=== PATIENT | male | born 1985 | race Caucasian/White ===

== ENCOUNTER 2016-09-14 17:27 | Emergency (ER) | payer OTHER ==
[2016-09-14 17:53] VITALS: RESP 18
[2016-09-14] MEDS ORDERED: ACETAMINOPHEN IV (For NPO) 1,000 MG in EMPTY BAG 1 BAG IVPB STA (18:13)
[2016-09-14] MEDS ORDERED: ONDANSETRON 4 MG/2 ML VIAL IVP STA (18:13)
[2016-09-14] MEDS ORDERED: SODIUM CHLORIDE 0.9% 1,000 ML IV ONE (18:13)
--- NOTE | 2016-09-14 18:17 | ED ---
Nausea/Vomiting/Diarrhea HPI - General Chief complaint: Nausea/Vomiting/Diarrhea Stated complaint: vomiting,diarreha Time Seen by Provider: 09/14/16 18:05 Source: patient, RN notes reviewed Mode of arrival: ambulatory Limitations: no limitations - History of Present Illness Initial comments: Patient is a 31-year-old male presents to the emergency room for evaluation nausea, vomiting and diarrhea. Patient's is with the patient. Patient's states that patient began feeling very nauseous from 1 PM. Patient's states that around 2:30 PM patient began with vomiting and diarrhea. Patient's states that patient has had these symptoms for the past 4 hours nonstop. Patient states that she thinks patient is dehydrated. Patient's states that their children had similar symptoms this past weekend but it did not last as long. Patient states he's having all over body pain and cramping. Patient states he having pain in the stomach from vomiting. Patient states he is currently feeling very nauseous. Patient denies back pain. Patient denies any trouble urinating. Patient denies being on any medications. Patient states he took Pepto-Bismol shortly before arrival. Patient states he feels lightheaded. Patient denies chest pain or shortness of breath. Patient denies ear pain and throat pain. Patient denies chest pain. Patient denies recent travel outside the country. Patient denies new foods. - Related Data Previous Rx's Medication Instructions Recorded Ondansetron Odt [Zofran Odt] 4 mg PO Q8HR PRN #12 tab 09/14/16 Allergies Allergy/AdvReac Type Severity Reaction Status Date / Time amoxicillin Allergy Unknown Verified 09/14/16 18:20 Childhood azithromycin [From Zithromax] Allergy Unknown Verified 09/14/16 18:20 Childhood gluten Allergy Unknown Verified 09/14/16 18:20 Milk Containing Products Allergy Unknown Verified 09/14/16 18:20 [Dairy] Review of Systems ROS Statement: Those systems with pertinent positive or pertinent negative responses have been documented in the HPI. ROS Other: All systems not noted in ROS Statement are negative. Past Medical History Past Medical History: No Reported History History of Any Multi-Drug Resistant Organisms: None Reported Additional Past Surgical History / Comment(s): vasectomy Past Psychological History: No Psychological Hx Reported Smoking Status: Never smoker Past Alcohol Use History: None Reported Past Drug Use History: Unable to Obtain General Exam - General Exam Comments Initial Comments: Laying in exam room, no acute distress. Limitations: no limitations General appearance: alert, in no apparent distress Head exam: Present: atraumatic, normocephalic, normal inspection Eye exam: Present: normal appearance ENT exam: Present: normal exam Neck exam: Present: normal inspection Respiratory exam: Present: normal lung sounds bilaterally. Absent: respiratory distress Cardiovascular Exam: Present: regular rate, normal rhythm, normal heart sounds GI/Abdominal exam: Present: soft, normal bowel sounds. Absent: distended, tenderness, guarding, rebound, rigid Extremities exam: Present: normal inspection Back exam: Present: normal inspection Neurological exam: Present: alert, oriented X3, CN II-XII intact, normal gait Psychiatric exam: Present: normal affect, normal mood Skin exam: Present: warm, dry, intact, normal color. Absent: rash Course Vital Signs 09/14/16 09/14/16 17:50 20:07 Temperature 96.1 F L 99.3 F Pulse Rate 94 84 Respiratory 18 18 Rate Blood Pressure 108/73 112/59 O2 Sat by Pulse 100 100 Oximetry Medical Decision Making - Medical Decision Making Patient is a 31-year-old male presents to the emergency room for evaluation nausea, vomiting and diarrhea. Patient states he feels much better after fluids and Zofran given. Patient states he would like to go home. Will send patient home with Zofran and advised to return for worsening symptoms. Patient states he understands and was discussed with him. Discussed with Dr. Vásquez. - Lab Data Result diagrams: 09/14/16 18:42 09/14/16 18:42 Lab Results 09/14/16 09/14/16 Range/Units 18:42 18:42 WBC 13.4 H (3.8-10.6) k/uL RBC 5.41 (4.30-5.90) m/uL Hgb 16.8 (13.0-17.5) gm/dL Hct 49.1 (39.0-53.0) % MCV 90.8 (80.0-100.0) fL MCH 31.1 (25.0-35.0) pg MCHC 34.3 (31.0-37.0) g/dL RDW 12.9 (11.5-15.5) % Plt Count 226 (150-450) k/uL Sodium 141 (137-145) mmol/L Potassium 3.9 (3.5-5.1) mmol/L Chloride 102 (98-107) mmol/L Carbon Dioxide 20 L (22-30) mmol/L Anion Gap 19 mmol/L BUN 19 (9-20) mg/dL Creatinine 1.11 (0.66-1.25) mg/dL Est GFR (MDRD) Af Amer >60 (>60 ml/min/1.73 sqM) Est GFR (MDRD) Non-Af >60 (>60 ml/min/1.73 sqM) Glucose 137 H (74-99) mg/dL Calcium 10.3 H (8.4-10.2) mg/dL Total Bilirubin 1.6 H (0.2-1.3) mg/dL AST 27 (17-59) U/L ALT 28 (21-72) U/L Alkaline Phosphatase 57 (38-126) U/L Total Protein 8.9 H (6.3-8.2) g/dL Albumin 5.2 H (3.5-5.0) g/dL Amylase 49 (30-110) U/L Lipase 87 (23-300) U/L - Radiology Data Radiology results: report reviewed, image reviewed Disposition Clinical Impression: Nausea vomiting and diarrhea Disposition: HOME SELF-CARE Condition: Good Instructions: Gastroenteritis (ED) Additional Instructions: Drink plenty of fluids. Take Zofran as needed for nausea. Please follow up with primary care provider in 1-2 days. If any new symptom arises or symptoms worsen, return to ER as soon as possible. Prescriptions: Ondansetron Odt [Zofran Odt] 4 mg PO Q8HR PRN #12 tab PRN Reason: Nausea Referrals: Lyric Ring MD [Primary Care Provider] - 1-2 days Time of Disposition: 19:52
[2016-09-14 19:07] LABS: CH 32.5; CHCM 35.9; HCT 49.1 % (39.0-53.0); HDW 2.58; HGB 16.8 gm/dL (13.0-17.5); Immature Gran Flag Slight; MCH 31.1 pg (25.0-35.0); MCHC 34.3 g/dL (31.0-37.0); MCV 90.8 fL (80.0-100.0); RBC 5.41 m/uL (4.30-5.90); RDW 12.9 % (11.5-15.5); WBC 13.4 k/uL (3.8-10.6); WBC (Perox) 14.41
[2016-09-14 19:08] LABS: ALT 28 U/L (21-72); AST 27 U/L (17-59); Alkaline Phosphatase 57 U/L (38-126); Amylase 49 U/L (30-110); Anion Gap 19 mmol/L; Blood Urea Nitrogen 19 mg/dL (9-20); Calcium 10.3 mg/dL (8.4-10.2); Carbon Dioxide 20 mmol/L (22-30); Chloride 102 mmol/L (98-107); Glucose 137 mg/dL (74-99); Non-African American GFR(MDRD) >60 (>60 ml/min/1.73 sqM); Potassium 3.9 mmol/L (3.5-5.1); Sodium 141 mmol/L (137-145); Total Bilirubin 1.6 mg/dL (0.2-1.3); Total Protein 8.9 g/dL (6.3-8.2)
--- NOTE | 2016-09-14 19:09 | XR ---
EXAMINATION TYPE: XR KUB DATE OF EXAM: 09/14/2016 6:53 PM COMPARISON: No prior HISTORY: Nausea, vomiting, and diarrhea today. TECHNIQUE: Upright abdominal radiograph was obtained in the KUB projection. FINDINGS: Scattered air-fluid levels are seen in nondilated bowel. Overall there is a nonobstructive bowel gas pattern. No abnormal calcifications are seen within the abdomen or pelvis. Osseous structur es appear intact. No evidence of organomegaly. IMPRESSION: Scattered air-fluid levels within nondilated bowel. Mild adynamic ileus.
[2016-09-14 20:10] VITALS: BP 112/59; PULSE 84; TEMP 99.3
[2016-09-14 20:18] LABS: Add Differential Manual Differential
[2016-09-14 20:23] LABS: Metamyelocytes % 0.5 %; Myelocytes % 0.5 %; Nucleated Red Blood Cells 0 /100 WBC (0-0); Total Cells Counted 200
[2016-09-14 20:24] LABS: Large Platelets Present; Manual Review Performed; Toxic Granulation Present; Toxic Vacuolation Present
== END 2016-09-14 20:11 | disposition home or self-care (01) ==
LOC: EC 17:27
DX: K52.9 Noninfective gastroenteritis and colitis, unspecified (principal); M79.1 Myalgia; Z88.0 Allergy status to penicillin; Z88.1 Allergy status to other antibiotic agents; Z91.011 Allergy to milk products; Z91.018 Allergy to other foods
CPT/HCPCS: 36415; 80053; 82150; 83690; 85025; 74000; 99284; 96374; 96375; 96361 ×2; J2405; J0131

== ENCOUNTER 2021-03-26 23:42 | Emergency (ER) | payer BC, OTHER ==
[2021-03-27] MEDS ORDERED: IBUPROFEN 600 MG TAB PO STA (00:43)
[2021-03-27] MEDS ORDERED: SODIUM CHLORIDE 0.9% 1,000 ML IV ONE (00:43)
[2021-03-27] MEDS ORDERED: ACETAMINOPHEN TAB 325 MG TAB PO STA (00:43)
--- NOTE | 2021-03-27 00:53 | ED ---
Abdominal Pain HPI - General Chief Complaint: Abdominal Pain Stated Complaint: nausea, numbness all over Time Seen by Provider: 03/27/21 00:10 Source: patient Mode of arrival: ambulatory Limitations: no limitations - History of Present Illness MD Complaint: abdominal pain, other -: hour(s) Location: diffuse Severity: mild Quality: cramping Improves With: nothing Worsens With: nothing Associated Symptoms: nausea, fever - Related Data Previous Rx's Medication Instructions Recorded Ondansetron Odt [Zofran Odt] 4 mg PO Q8HR PRN #12 tab 09/14/16 Allergies Allergy/AdvReac Type Severity Reaction Status Date / Time amoxicillin Allergy Unknown Verified 03/26/21 23:52 Childhood azithromycin [From Zithromax] Allergy Unknown Verified 03/26/21 23:52 Childhood gluten Allergy Unknown Verified 03/26/21 23:52 Milk Containing Products Allergy Unknown Verified 03/26/21 23:52 [Dairy] Review of Systems ROS Statement: Those systems with pertinent positive or pertinent negative responses have been documented in the HPI. ROS Other: All systems not noted in ROS Statement are negative. Constitutional: Reports: fever, chills. Denies: weakness Respiratory: Denies: cough, dyspnea Cardiovascular: Denies: chest pain, palpitations, edema Gastrointestinal: Reports: abdominal pain, nausea, diarrhea. Denies: vomiting Genitourinary: Denies: dysuria, hematuria Musculoskeletal: Denies: back pain Skin: Denies: rash Neurological: Denies: headache, weakness, numbness Past Medical History Past Medical History: No Reported History History of Any Multi-Drug Resistant Organisms: None Reported Additional Past Surgical History / Comment(s): vasectomy Past Psychological History: No Psychological Hx Reported Smoking Status: Never smoker Past Alcohol Use History: None Reported Past Drug Use History: Unable to Obtain General Exam Limitations: no limitations General appearance: alert, in no apparent distress Head exam: Present: atraumatic, normocephalic Eye exam: Present: normal appearance. Absent: scleral icterus, conjunctival injection ENT exam: Present: mucous membranes dry Neck exam: Present: normal inspection, full ROM Respiratory exam: Present: normal lung sounds bilaterally. Absent: respiratory distress, wheezes, rales, rhonchi, stridor Cardiovascular Exam: Present: normal rhythm, tachycardia. Absent: systolic murmur, diastolic murmur, rubs, gallop GI/Abdominal exam: Present: soft. Absent: distended, tenderness, guarding, rebound, rigid, mass, pulsatile mass Extremities exam: Present: normal inspection, normal capillary refill. Absent: pedal edema, calf tenderness Back exam: Present: normal inspection. Absent: CVA tenderness (R), CVA tenderness (L) Neurological exam: Present: alert Skin exam: Present: warm, intact, normal color, diaphoretic. Absent: rash Course Vital Signs 03/26/21 03/27/21 03/27/21 23:47 00:20 00:34 Temperature 102.5 F H Pulse Rate 114 H 97 99 Respiratory 26 H 32 H 20 Rate Blood Pressure 98/57 94/61 O2 Sat by Pulse 100 99 99 Oximetry 03/27/21 03/27/21 01:00 02:05 Temperature 100.9 F H Pulse Rate 104 H 81 Respiratory 24 18 Rate Blood Pressure 108/65 106/58 O2 Sat by Pulse 100 97 Oximetry Medical Decision Making - Lab Data Lab Results 03/27/21 Range/Units 00:02 Coronavirus (PCR) Detected A (Not Detectd) - EKG Data -: EKG Interpreted by Nd EKG shows normal: sinus rhythm, axis (Normal), intervals (Prolonged QT), QRS complexes (Normal), ST-T waves (Normal) Rate: normal (Rate 97 bpm) Disposition Clinical Impression: COVID-19 Disposition: HOME SELF-CARE Condition: Good Instructions (If sedation given, give patient instructions): Coronavirus Disease 2019 (COVID-19) Is patient prescribed a controlled substance at d/c from ED?: No Referrals: Elliot Newell MD [Primary Care Provider] - 1-2 days
[2021-03-27 02:07] VITALS: PULSE 81; RESP 18; TEMP 100.9
[2021-03-27 02:42] VITALS: BP 108/50
== END 2021-03-27 02:38 | disposition home or self-care (01) ==
LOC: EC 23:42
DX: U07.1 COVID-19 (principal)
CPT/HCPCS: 87635; 93005; 96360; 99284

== ENCOUNTER 2021-04-02 14:55 | Emergency (ER) | payer BC ==
[2021-04-02 15:11] VITALS: TEMP 99.3
[2021-04-02] MEDS ORDERED: SODIUM CHLORIDE 0.9% 1,000 ML IV STA (16:06)
--- NOTE | 2021-04-02 16:40 | XR ---
EXAMINATION TYPE: XR chest 2V DATE OF EXAM: 04/02/2021 COMPARISON: NONE HISTORY: Chest pain TECHNIQUE: 2 views FINDINGS: There is no heart failure. There is increased density over the left lower lung field consis tent with a small posterior infiltrate. Costophrenic angles are clear. There are no hilar masses. The re is small linear density at the lung bases. IMPRESSION: Minimal subsegmental atelectasis. There is probably a small infiltrate in the superior se gment left lower lobe measuring 1.5 cm. Normal heart.
[2021-04-02 16:47] LABS: ALT 22 U/L (4-49); AST 40 U/L (17-59); African American GFR (CKD) >90 (>60 ml/min/1.73 sqM); Albumin 4.3 g/dL (3.5-5.0); Alkaline Phosphatase 47 U/L (38-126); Anion Gap 10 mmol/L; Blood Urea Nitrogen 14 mg/dL (9-20); Calcium 8.9 mg/dL (8.4-10.2); Carbon Dioxide 26 mmol/L (22-30); Chloride 99 mmol/L (98-107); Creatine Kinase 176 U/L (55-170); Glucose 96 mg/dL (74-99); Lipase 151 U/L (23-300); Magnesium 2.1 mg/dL (1.6-2.3); Non-African American GFR(CKD) >90 (>60 ml/min/1.73 sqM); Potassium 4.3 mmol/L (3.5-5.1); Sodium 135 mmol/L (137-145); Total Bilirubin 0.6 mg/dL (0.2-1.3); Total Protein 7.3 g/dL (6.3-8.2)
--- NOTE | 2021-04-02 16:51 | ED ---
Chest Pain HPI - General Chief Complaint: Chest Pain Stated Complaint: chest pain Time Seen by Provider: 04/02/21 15:57 Source: patient, RN notes reviewed Mode of arrival: wheelchair Limitations: no limitations - History of Present Illness Initial Comments: 35-year-old male who presents with complaints of chest pain proximal of breath he states it started yesterday. It is somewhat exertional. 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 Symptoms started shortly before that time. No prior history of heart or lung disease. No other complaints modifying factors at this time MD Complaint: chest pain - Related Data Previous Rx's Medication Instructions Recorded Albuterol Inhaler [Ventolin Hfa 2 puff INHALATION RT-QID #8 gm 04/02/21 Inhaler] Allergies Allergy/AdvReac Type Severity Reaction Status Date / Time amoxicillin Allergy Unknown Verified 04/02/21 17:34 Childhood azithromycin [From Zithromax] Allergy Unknown Verified 04/02/21 17:34 Childhood gluten Allergy Unknown Verified 04/02/21 17:34 Milk Containing Products Allergy Unknown Verified 04/02/21 17:34 [Dairy] Review of Systems ROS Statement: Those systems with pertinent positive or pertinent negative responses have been documented in the HPI. ROS Other: All systems not noted in ROS Statement are negative. EKG Findings - EKG Results: EKG: interpreted by KEDAR ANAND, sinus rhythm, normal axis, normal QRS, normal ST/T, no acute changes (Normal sinus rhythm a 74. We'll 140 QRS duration 94 QT since QTC 408/452) Past Medical History Past Medical History: No Reported History History of Any Multi-Drug Resistant Organisms: None Reported Additional Past Surgical History / Comment(s): vasectomy Past Psychological History: No Psychological Hx Reported Smoking Status: Never smoker Past Alcohol Use History: None Reported Past Drug Use History: None Reported General Exam - General Exam Comments Initial Comments: Well-developed sec appearing male was awake alert oriented 3 Limitations: no limitations General appearance: alert, in no apparent distress Head exam: Present: atraumatic, normocephalic, normal inspection Eye exam: Present: normal appearance, PERRL, EOMI. Absent: scleral icterus, conjunctival injection, periorbital swelling ENT exam: Present: normal exam, mucous membranes moist Neck exam: Present: normal inspection, full ROM, other (No stridor JVD or brui ts). Absent: tenderness, meningismus, lymphadenopathy Respiratory exam: Present: normal lung sounds bilaterally. Absent: respiratory distress, wheezes, rales, rhonchi, stridor Cardiovascular Exam: Present: regular rate, normal rhythm, normal heart sounds. Absent: systolic murmur, diastolic murmur, rubs, gallop, clicks GI/Abdominal exam: Present: soft, normal bowel sounds. Absent: distended, tenderness, guarding, rebound, rigid Extremities exam: Present: normal inspection, full ROM, normal capillary refill. Absent: tenderness, pedal edema, joint swelling, calf tenderness Back exam: Present: normal inspection Neurological exam: Present: alert, oriented X3, CN II-XII intact Psychiatric exam: Present: normal affect, normal mood Skin exam: Present: warm, dry, intact, normal color. Absent: rash Course Vital Signs 04/02/21 15:08 Temperature 99.3 F Pulse Rate 82 Respiratory 18 Rate Blood Pressure 104/69 O2 Sat by Pulse 96 Oximetry Chest Pain MDM - MDM Reevaluation the patient feels improved. I did a long discussion with him and his mother regarding the findings. Patient does have evidence of a slight left superior lower lobe infiltrate consistent with the viral infection. Lab work within limits. We did a long discussion regarding [id number] medication to be used the presentation does demonstrate probable spasm and chestwall pain Patient be placed on an inhaler and other medication we did discuss [id number] be discharged with follow-up when necessary Disposition Clinical Impression: COVID-19, Viral pneumonia, Acute bronchospasm Disposition: HOME SELF-CARE Condition: Good Instructions (If sedation given, give patient instructions): Bronchospasm (ED), Coronavirus Disease 2019 (COVID-19), Viral Pneumonia (ED), Viral Syndrome (ED) Prescriptions: Albuterol Inhaler [Ventolin Hfa Inhaler] 2 puff INHALATION RT-QID #8 gm Is patient prescribed a controlled substance at d/c from ED?: No Referrals: Elliot Newell MD [Primary Care Provider] - 1-2 days
[2021-04-02 16:53] LABS: Partial Thromboplastin Time 27.9 sec (22.0-30.0); Prothrombin Time 10.4 sec (9.0-12.0)
[2021-04-02 16:56] LABS: Basophils % (A) 0 %; Eosinophils % (A) 0 %; HCT 43.7 % (39.0-53.0); HGB 15.8 gm/dL (13.0-17.5); Lymphocytes # (A) 0.7 k/uL (1.0-4.8); Lymphocytes % (A) 25 %; MCH 32.4 pg (25.0-35.0); MCHC 36.2 g/dL (31.0-37.0); MCV 89.6 fL (80.0-100.0); Mean Platelet Volume 8.7; Monocytes # (A) 0.2 k/uL (0-1.0); Monocytes % (A) 6 %; Neutrophils # (A) 1.8 k/uL (1.3-7.7); Neutrophils % (A) 66 %; Platelet Count 101 k/uL (150-450); RBC 4.88 m/uL (4.30-5.90); RDW 12.4 % (11.5-15.5); WBC 2.7 k/uL (3.8-10.6)
[2021-04-02 19:43] VITALS: BP 132/79; PULSE 75; RESP 17
== END 2021-04-02 19:43 | disposition home or self-care (01) ==
LOC: EC 14:55
DX: U07.1 COVID-19 (principal); J12.89 Other viral pneumonia; J98.01 Acute bronchospasm; Z88.1 Allergy status to other antibiotic agents
CPT/HCPCS: 36415; 71046; 80053; 82550; 83690; 83735; 83880; 84484; 85025; 85379; 85610; 85730; 93005; 96360; 96361; 99285